=== PATIENT | male | born 1990 | race African-American/Black ===

== ENCOUNTER 2017-04-09 06:43 | Emergency (ER) | payer OTHER ==
[~2017-04-09] VITALS: Ht 172.7 cm; Wt 75.0 kg
[~2017-04-09 06:43] MED LIST: ALBU.5I NEB; VENTAER INH
[2017-04-09 06:45] VITALS: BP 126/73; PULSE 101; RESP 20; TEMP 98.8; O2SAT 99
[2017-04-09] MEDS ORDERED: SODIUM CHLOR 0.9% 1000 ML INJ 1,000 ML IV ONE (06:50)
[2017-04-09] MEDS ORDERED: SODIUM CHLORIDE 0.9% FLUSH 10 ML FLUSH IVF PRN (07:00)
[2017-04-09 07:04] LABS: BASOPHIL # 0.1 TH/MM3 (0-0.2); BASOPHIL % 0.7 % (0.0-2.0); EOSINOPHIL # 0.4 TH/MM3 (0-0.4); EOSINOPHIL % 5.4 % (0.0-4.0); HEMATOCRIT 45.3 % (39.0-51.0); HEMO FLAGS AUTO DIFF; LYMPH % 47.5 % (9.0-44.0); LYMPHOCYTE # 3.4 TH/MM3 (1.0-4.8); MEAN CELL VOLUME 75.7 FL (80.0-100.0); MEAN CORPUSCULAR HEMOGLOBIN 23.1 PG (27.0-34.0); MEAN CORPUSCULAR HGB CONC 30.5 % (32.0-36.0); MONO % 6.2 % (0.0-8.0); NEUT % 40.2 % (16.0-70.0); PLATELET COUNT 183 TH/MM3 (150-450); RED BLOOD COUNT 5.99 MIL/MM3 (4.50-5.90); WHITE BLOOD COUNT 7.4 TH/MM3 (4.0-11.0)
--- NOTE | 2017-04-09 07:08 | PD ---
HPI Chief Complaint: Seizure Time Seen by Provider: 06:50 Travel History International Travel<30 days: No Contact w/Intl Traveler<30days: No Traveled to known affect area: No History of Present Illness HPI 26-year-old male presents to the emergency department by EMS transport from home after girlfriend witnessed him having a generalized tonic clonic seizure and beverages prior to arrival to the emergency department. It is unclear duration of the event. It was no trauma. Patient here and complains of headache and thoracic spine pain. Patient denies any recent injury fever or respiratory illness or trauma. No prior history of seizure disorder. Patient takes no medications. Patient does not smoke cigarettes use substances or drink alcohol. Patient has family history of epilepsy and his mother. Patient is unable to provide further history. There is no tongue trauma no bladder or bowel incontinence. Patient does not report any upper extremity or lower extremity numbness tingling or weakness. According to headhunter report to the nursing patient was postictal upon their arrival. PFSH Past Medical History Narrative Medical asthma; no tobacco use no alcohol use no substance use Asthma: Yes Diminished Hearing: No Respiratory: Yes (ASHA) Immunizations Current: Yes ?: Not Social History Alcohol Use: No Tobacco Use: No Substance Use: No Allergies-Medications (Allergen,Severity, Reaction): Coded Allergies: azithromycin (Unverified Allergy, Severe, Anemia, 12/19/16) ibuprofen (Unverified Allergy, Severe, 12/19/16) prednisone (Unverified Allergy, Intermediate, chest "closes up", 12/19/16) Reported Meds & Prescriptions Reported Meds & Active Scripts Active Reported Ventolin Hfa 18 GM Inh (Albuterol Sulfate) 90 Mcg/Act Aer 2 Puff INH Q4H PRN Albuterol Neb (Albuterol Sulfate) 2.5 Mg/0.5 Ml Neb 2.5 Mg NEB Q4HR NEB PRN Note: The Albuterol Sulfate Inhalation Solution is concentrated and must be diluted. Read complete instructions carefully before using. Review of Systems ROS Limitations: Clinical Condition, Poor Historian Except as stated in HPI: all other systems reviewed are Neg Physical Exam Narrative GENERAL: Well-developed well-nourished male in no acute distress no respiratory distress appears mildly confused SKIN: Warm and dry. HEAD: Atraumatic. Normocephalic. No scalp soft tissue swelling or tenderness to palpation. EYES: Pupils equal and round. Extraocular muscles intact. No scleral icterus. No injection or drainage. ENT: No nasal bleeding or discharge. Mucous membranes pink and moist. Airway is patent. No tongue trauma. NECK: Trachea midline. No JVD. Nontender to direct palpation along the cervical spine no bony step-off no paracervical muscle spasm. CARDIOVASCULAR: Regular rate and rhythm. Chest wall nontender to palpation. No ecchymosis or abrasion. RESPIRATORY: No accessory muscle use. Clear to auscultation. Breath sounds equal bilaterally. GASTROINTESTINAL: Abdomen soft, non-tender, nondistended. Hepatic and splenic margins not palpable. MUSCULOSKELETAL: Extremities without clubbing, cyanosis, or edema. No obvious deformities. Mild tenderness to palpation along the mid thoracic spine with no bony step-off. Otherwise thoracic and lumbar spine are nontender to palpation no bony step-off and no flank tenderness to percussion. No abrasions or ecchymosis noted. NEUROLOGICAL: Awake and alert. No obvious cranial nerve deficits. Motor grossly within normal limits. Five out of 5 muscle strength in the arms and legs. Normal speech. No pronator drift. No limb ataxia. PSYCHIATRIC: Appropriate mood and affect; insight and judgment normal. Data Data Last Documented VS Vital Signs Date Time Temp Pulse Resp B/P (MAP) Pulse Ox O2 Delivery O2 Flow Rate FiO2 04/09/17 06:45 98.8 101 20 126/73 (90) 99 Orders Orders Electrocardiogram (04/09/17 06:50) Basic Metabolic Panel (Bmp) (04/09/17 06:50) Complete Blood Count With Diff (04/09/17 06:50) Magnesium (Mg) (04/09/17 06:50) Act Partial Throm Time (Ptt) (04/09/17 06:50) Prothrombin Time / Inr (Pt) (04/09/17 06:50) Urinalysis - C+S If Indicated (04/09/17 06:50) Chest, Single Ap (04/09/17 06:50) Ct Brain W/O Iv Contrast(Rout) (04/09/17 06:50) Blood Glucose (04/09/17 06:50) Ecg Monitoring (04/09/17 06:50) Iv Access Insert/Monitor (04/09/17 06:50) Oximetry (04/09/17 06:50) Sodium Chloride 0.9% Flush (Ns Flush) (04/09/17 07:00) Sodium Chlor 0.9% 1000 Ml Inj (Ns 1000 M (04/09/17 06:50) Spine, Thoracic-Ap/Lat/Sw(3vw) (04/09/17 ) Labs Laboratory Tests Test 04/09/17 06:54 White Blood Count 7.4 TH/MM3 Red Blood Count 5.99 MIL/MM3 Hemoglobin 13.8 GM/DL Hematocrit 45.3 % Mean Corpuscular Volume 75.7 FL Mean Corpuscular Hemoglobin 23.1 PG Mean Corpuscular Hemoglobin Concent 30.5 % Red Cell Distribution Width 14.0 % Platelet Count 183 TH/MM3 Mean Platelet Volume 8.5 FL Neutrophils (%) (Auto) 40.2 % Lymphocytes (%) (Auto) 47.5 % Monocytes (%) (Auto) 6.2 % Eosinophils (%) (Auto) 5.4 % Basophils (%) (Auto) 0.7 % Neutrophils # (Auto) 3.0 TH/MM3 Lymphocytes # (Auto) 3.4 TH/MM3 Monocytes # (Auto) 0.5 TH/MM3 Eosinophils # (Auto) 0.4 TH/MM3 Basophils # (Auto) 0.1 TH/MM3 CBC Comment AUTO DIFF MDM Medical Decision Making Medical Screen Exam Complete: Yes Emergency Medical Condition: Yes Medical Record Reviewed: Yes Differential Diagnosis new-onset seizure, ICH, viral syndrome, musculoskeletal sprain strain fracture Narrative Course Patient placed on color television console monitor seizure precautions administered IV access obtained bedside glucose performed CT imaging study ordered At 7 AM care signed over to oncoming physician Marli Patterson MD Apr 09, 2017 07:08
[2017-04-09] MEDS ORDERED: LORazepam 2 MG/ML VIAL IV PUSH SCH (07:15)
[2017-04-09] MEDS ORDERED: KETOROLAC TROMETHAMINE 30 MG/ML (IVP) VIAL IV PUSH ONE (07:15)
[2017-04-09 07:17] LABS: POTASSIUM 4.1 MEQ/L (3.5-5.1)
--- NOTE | 2017-04-09 07:18 | PD ---
Physical Exam Date Seen by Provider: Apr 09, 2017 Time Seen by Provider: 07:00 Narrative The patient presented to us by EVAC status post a tonic-clonic seizure. The seizure was witnessed by his girlfriend. She states that it lasted approximately 5 minutes. It was followed by a postictal period of somewhere in the neighborhood of 15-20 minutes. There were no noted modifying factors. His girlfriend reports that he has difficulty breathing all night. His mother reports chronic difficulty breathing during the night time. She states that she frequently has to wake him up and asked him to turn on his side so that he can breathe. Last night was a particularly bad night. There has been no antecedent trauma. He has not been ill lately. He denies the use of alcohol or illicit drugs. He reports a medical history of asthma but takes no medications. He is now complaining with upper back pain. He did not bite his tongue or have bowel or bladder incontinence. His mother has a history of epilepsy. GENERAL: Patient is now awake and alert and fully oriented. SKIN: warm/dry. HEAD: Normocephalic. Atraumatic. EYES: Pupils equal and round. No scleral icterus. No injection or drainage. ENT: No nasal bleeding or discharge. Mucous membranes pink and moist. NECK: Trachea midline. Full range of motion without pain.. CARDIOVASCULAR: Regular rate and rhythm. Heart sounds are normal. RESPIRATORY: No accessory muscle use. Clear to auscultation. Breath sounds equal bilaterally. GASTROINTESTINAL: Abdomen soft. Nontender. Bowel sounds present. Nondistended. : MUSCULOSKELETAL: No obvious deformities. He has some diffuse upper back tenderness. No point tenderness. NEUROLOGICAL: Awake and alert. No obvious cranial nerve deficits. Motor grossly within normal limits. Normal speech. PSYCHIATRIC: Appropriate mood and affect; insight and judgment normal. Data Data Last Documented VS Vital Signs Date Time Temp Pulse Resp B/P (MAP) Pulse Ox O2 Delivery O2 Flow Rate FiO2 04/09/17 08:02 78 16 119/67 (84) 100 Room Air 04/09/17 06:45 98.8 Orders Orders Electrocardiogram (04/09/17 06:50) Basic Metabolic Panel (Bmp) (04/09/17 06:50) Complete Blood Count With Diff (04/09/17 06:50) Magnesium (Mg) (04/09/17 06:50) Act Partial Throm Time (Ptt) (04/09/17 06:50) Prothrombin Time / Inr (Pt) (04/09/17 06:50) Urinalysis - C+S If Indicated (04/09/17 06:50) Chest, Single Ap (04/09/17 06:50) Ct Brain W/O Iv Contrast(Rout) (04/09/17 06:50) Blood Glucose (04/09/17 06:50) Ecg Monitoring (04/09/17 06:50) Iv Access Insert/Monitor (04/09/17 06:50) Oximetry (04/09/17 06:50) Sodium Chloride 0.9% Flush (Ns Flush) (04/09/17 07:00) Sodium Chlor 0.9% 1000 Ml Inj (Ns 1000 M (04/09/17 06:50) Spine, Thoracic-Ap/Lat/Sw(3vw) (04/09/17 ) Lorazepam Inj (Ativan Inj) (04/09/17 07:15) Ketorolac Inj (Toradol Inj) (04/09/17 07:15) Labs Laboratory Tests Test 04/09/17 06:54 White Blood Count 7.4 TH/MM3 Red Blood Count 5.99 MIL/MM3 Hemoglobin 13.8 GM/DL Hematocrit 45.3 % Mean Corpuscular Volume 75.7 FL Mean Corpuscular Hemoglobin 23.1 PG Mean Corpuscular Hemoglobin Concent 30.5 % Red Cell Distribution Width 14.0 % Platelet Count 183 TH/MM3 Mean Platelet Volume 8.5 FL Neutrophils (%) (Auto) 40.2 % Lymphocytes (%) (Auto) 47.5 % Monocytes (%) (Auto) 6.2 % Eosinophils (%) (Auto) 5.4 % Basophils (%) (Auto) 0.7 % Neutrophils # (Auto) 3.0 TH/MM3 Lymphocytes # (Auto) 3.4 TH/MM3 Monocytes # (Auto) 0.5 TH/MM3 Eosinophils # (Auto) 0.4 TH/MM3 Basophils # (Auto) 0.1 TH/MM3 CBC Comment AUTO DIFF Differential Comment AUTO DIFF CONFIRMED Prothrombin Time 10.6 SEC Prothromb Time International Ratio 1.0 RATIO Activated Partial Thromboplast Time 22.2 SEC Blood Urea Nitrogen 16 MG/DL Creatinine 1.40 MG/DL Random Glucose 141 MG/DL Calcium Level 8.8 MG/DL Magnesium Level 2.3 MG/DL Sodium Level 139 MEQ/L Potassium Level 4.1 MEQ/L Chloride Level 107 MEQ/L Carbon Dioxide Level 14.2 MEQ/L Anion Gap 18 MEQ/L Estimat Glomerular Filtration Rate 62 ML/MIN MDM Supervised Visit with ISABEL: No Differential Diagnosis Differential diagnosis of seizure includes but is not limited to epilepsy, electrolyte abnormality, previous stroke, closed head injury Narrative Course Patient presents status post his first seizure. It was a tonic-clonic seizure which lasted approximately 5 minutes and which was followed by a postictal period. CT of his head, basic labs and x-rays of his T-spine are pending. I have ordered Toradol for his upper back pain and Ativan both to prevent further seizure activity and to treat muscle tightness in his upper back. CBC & BMP Diagram 04/09/17 06:54 Calcium Level 8.8, Magnesium Level 2.[address] 04/09/17 0650 Signed Impressions: Service Date/Time: Sunday, April 09, 2017 08:02 - CONCLUSION: 1. No acute intracranial abnormality. Brian Lazo MD Chest X-Ray 04/09/17 0650 Signed Impressions: Service Date/Time: Sunday, April 09, 2017 07:11 - CONCLUSION: Normal examination. Andrea Lucero MD Thoracic Spine X-Ray 04/09/17 0000 Signed Impressions: Service Date/Time: Sunday, April 09, 2017 07:11 - CONCLUSION: Unremarkable examination of the thoracic spine. Andrea Lucero MD No etiology for his seizure has been found. He will be discharged to home with a referral to neurology. Diagnosis Primary Impression: Seizure Referrals: Gordon Bianchi MD 3 days Patient Instructions: General Instructions, New-Onset Seizure in Adults (DC) Scripts No Active Prescriptions or Reported Meds Disposition: DISCHARGE HOME Condition: Stable Sarah Hopson MD Apr 09, 2017 07:17
[2017-04-09 07:21] LABS: BICARBONATE 14.2 MEQ/L (21.0-32.0); MAGNESIUM 2.3 MG/DL (1.5-2.5)
[2017-04-09 07:22] LABS: APTT (PATIENT) 22.2 SEC (24.3-30.1); PROTHROMBIN TIME - PATIENT 10.6 SEC (9.8-11.6)
[2017-04-09 07:45] LABS: SCAN/DIFF AUTO DIFF CONFIRMED
--- NOTE | 2017-04-09 07:52 | RADRPT ---
EXAM DATE/TIME: 04/09/2017 07:11 [facility] COMPARISON: No previous studies available for comparison. INDICATIONS : Back pain after having a seizure today. MEDICAL HISTORY : Asthma. SURGICAL HISTORY : None. ENCOUNTER: Initial ACUITY: 1 day PAIN SCORE: 10/10 LOCATION: In between the scapulas. FINDINGS: There is normal alignment of the thoracic vertebral bodies. Vertebral body height is maintained. No evidence of fracture or subluxation. Pedicles are intact at all levels. The paravertebral reflecti ons are not thickened. CONCLUSION: Unremarkable examination of the thoracic spine. Andrea Lucero MD on April 09, 2017 at 7:50 Board Certified Radiologist. This report was verified electronically.
--- NOTE | 2017-04-09 07:53 | RADRPT ---
EXAM DATE/TIME: 04/09/2017 07:11 [facility] COMPARISON: CHEST SINGLE AP, April 12, 2016, 19:44. INDICATIONS : Shortness of breath after having a seizure today. MEDICAL HISTORY : Asthma. SURGICAL HISTORY : None. ENCOUNTER: Initial ACUITY: 1 day PAIN SCORE: 0/10 LOCATION: Bilateral chest FINDINGS: A single view of the chest demonstrates the lungs to be symmetrically aerated without evidence of mas s, infiltrate or effusion. The cardiomediastinal contours are unremarkable. Osseous structures are intact. CONCLUSION: Normal examination. Andrea Lucero MD on April 09, 2017 at 7:51 Board Certified Radiologist. This report was verified electronically.
[2017-04-09 08:02] VITALS: BP 119/67; PULSE 78; RESP 16; O2SAT 100
--- NOTE | 2017-04-09 08:57 | RADRPT ---
EXAM DATE/TIME: 04/09/2017 08:02 [facility] COMPARISON: No previous studies available for comparison. INDICATIONS : Dizziness. New onset seizure. RADIATION DOSE: 56.84 CTDIvol (mGy) MEDICAL HISTORY : Asthma. SURGICAL HISTORY : None. ENCOUNTER: Initial ACUITY: 1 day PAIN SCALE: 0/10 LOCATION: cranial TECHNIQUE: Multiple contiguous axial images were obtained of the head. Using automated exposure control and adj ustment of the mA and/or kV according to patient size, radiation dose was kept as low as reasonably a chievable to obtain optimal diagnostic quality images. DICOM format image data is available electro nically for review and comparison. FINDINGS: CEREBRUM: The ventricles are normal for age. No evidence of midline shift, mass lesion, hemorrhage or acute in farction. No extra-axial fluid collections are seen. POSTERIOR FOSSA: The cerebellum and brainstem are intact. The 4th ventricle is midline. The cerebellopontine angle i s unremarkable. EXTRACRANIAL: The visualized portion of the orbits is intact. SKULL: The calvaria is intact. No evidence of skull fracture. CONCLUSION: 1. No acute intracranial abnormality. Brian Lazo MD on April 09, 2017 at 8:54 Board Certified Radiologist. This report was verified electronically.
--- NOTE | 2017-04-09 19:54 | EKG ---
Date Performed: 04/09/2017 Time Performed: 06:57:57 PTAGE: 26 years EKG: Sinus rhythm Since previous tracing, no significant change noted NORMAL ECG PREVIOUS TRACING : 04/12/2016 19.18 DOCTOR: Mulu Jiménez Interpretating Date/Time 04/09/2017 19:53:35
== END 2017-04-09 09:59 | disposition home or self-care (01) ==
LOC: PHED 06:43
DX: R56.9 Unspecified convulsions (principal); R51 Headache; R06.00 Dyspnea, unspecified; J45.909 Unspecified asthma, uncomplicated; M54.6 Pain in thoracic spine
CPT/HCPCS: 70450; 71010; 72072; 80048; 83735; 85025; 85610; 85730; 93005; 96361; 96374; 96375; 99285; J1885; J2060; J7030

== ENCOUNTER → 2017-05-31 | Outpatient (CLI) | payer OTHER ==
--- NOTE | 2017-05-31 19:11 | MG ---
cc: TAE NEAL MD Lab No: Date: 05/31/17 Age: 26 Sex: M Race: An EEG was obtained as outpatient on this 26-year-old patient who is awake and drowsy. The patient is being evaluated for possible seizures. The EEG shows 9-10 per second low and mid amplitude alpha rhythms posteriorly. The background is reactive. There are beta rhythms centrally and frontally. Photic stimulation showed some bilateral driving response. Hyperventilation produced mild generalized slowing. The patient subsequently enters sleep stage I and there is more widespread beta activity, prominent theta rhythms. There is some probable sleep stage II as well in this recording. INTERPRETATION Normal awake and light asleep EEG. Tae Neal MD [facility]/ /5:55 PM /6:56 PM
== END ==
LOC: HEEG 08:55
PROVIDERS: ATTEND Psychiatry & Neurology Vascular Neurology
DX: G40.909 Epilepsy, unspecified, not intractable, without status epilepticus (principal)
CPT/HCPCS: 95819